=== PATIENT | female | born 1955 | race Caucasian/White ===

== ENCOUNTER → 2017-12-11 | Outpatient (CLI) | payer BC ==
[~2017-12-11] MED LIST: ACE3 PO; ATOR40TA24 PO; CALC-597 PO; CHOLESTEROL PO; IBUP-56 PO; MULT-1335 PO; OMEG-24 PO
--- NOTE | 2017-12-15 09:08 | RADIOLOGY IMAGING REPORT ---
FACILITY: [facility] - [place] PATIENT NAME: EMILIANA COLLINS : [id number] MR: [id number] V: [id number] EXAM DATE: [id number] ORDERING PHYSICIAN: EMI MARIE TECHNOLOGIST: Mirima Rolon PROCEDURE:BILATERAL DIGITAL SCREENING MAMMOGRAM WITH CAD ASSISTED INTERPRETATION & 3D TOMOSYNTHESIS COMPARISON:Prior mammograms 12/08/16, 12/07/15, 11/16/14, 10/17/13, 10/14/12, 10/09/11. INDICATIONS:screening FINDINGS: Moderately dense fibroglandular tissue is seen throughout the breasts. The parenchymal pattern has remained stable allowing for difference in mammographic technique & patient positioning. There is no evidence of malignant appearing mass, malignant appearing calcifications or other secondary sign of malignancy in either breast. DIAGNOSTIC CATEGORY 1--NEGATIVE. RECOMMENDATIONS: ROUTINE MAMMOGRAM AND CLINICAL EVALUATION. IMPRESSION: BIRADS 1: Negative. No significant abnormality is seen. Dictated by: Paula Domínguez M.D. on 12/14/2017 at 11:19 Transcribed by: ASHLEY on 12/14/2017 at 13:39 Approved by: Paula Domínguez M.D. on 12/15/2017 at 9:05 [facility]
== END ==
LOC: MAMO 00:56
PROVIDERS: ATTEND Nurse Practitioner Family
DX: Z12.31 Encounter for screening mammogram for malignant neoplasm of breast (principal)
CPT/HCPCS: 77063; 77067

== ENCOUNTER 2018-09-14 15:34 | Outpatient (RCR) | payer BC ==
[~2018-09-14] VITALS: Ht 170.2 cm; Wt 97.5 kg
--- NOTE | 2018-09-17 12:59 | Medical Nutrition Therapy ---
Nutrition Anthropometrics Height (Inches): 67 Weight (Pounds): 215 BMI: 33.6 Rasheed Nutrition Score: Rasheed Nutrition Risk Score: Dietary Referral Nutrition Risk Factors: Nutrition Risk Comment: Nutrition/Food History Breakfast: coffee W crm/sugar, protein bar or egg & sausage Lunch: fozen TV sinner or cheese/salami/veg Dinner: meat, 1c potatoes, veggie, occ fruit or dessert Snacks: 3-4:00 Pm coffee, cookies ,trainl mix, yourt/granola,or cheese sticks Nutritional Education Nutrition Education Topic: Diabetic Nutrition Learning Readiness: Interested Teaching Methods: Discussion, Handout, Demonstration Response to Teaching: Verbalize understanding Nutrition Counseling: Pt with referral for hyperglycemia/obesity. Discussed prediabetes vs diabetes dx. Reviwed recommedations of diabetes prevention program. Enouraged pt to focus on wt loss to assist with BG control. Pt states execised 5X week by walking 30 minutes. Encouraged pt to continues and possibly increase exercise if she can. Reviewed affect of CHO on BG. Discussed plate method and CHO portion control method. Provided meal plan of 30-45gm CHO/meal 1-2 fat serving/meal and unlimited veg and lean protein. Pt unsure if this is covered by her insureance so declined diabetic classes and weigh-in f/u. pt encouraged to call if she had any questions or concerns or wanted to attend further sessions in the future. Nutrition Monitoring & Eval RD Patient Assessment Time: 60 minutes Nutritional Comment: Provided 70 minutes of diabetes education for pt with dx obesity and BMI 33.6 focusing on what is diabetes vs prediabetes and nutrition Copies To Copies to: EMI MARIE ; DB DESAI September 14, 2018 17:02
== END 2018-10-19 ==
LOC: DIET 15:34
PROVIDERS: ATTEND Nurse Practitioner Family
DX: R73.9 Hyperglycemia, unspecified (principal); E78.5 Hyperlipidemia, unspecified; E66.9 Obesity, unspecified
CPT/HCPCS: G0108 ×2